=== PATIENT | male | born 1980 | race American Indian/Alaskan Native ===

== ENCOUNTER 2018-07-02 16:09 | Emergency (ER) | payer OTHER ==
[2018-07-02 16:24] VITALS: BP 137/80; PULSE 76; RESP 18; TEMP 98; O2SAT 99
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
--- NOTE | 2018-07-02 17:14 | RAD ---
Date of service: 07/02/2018 PROCEDURE: Cervical Spine Radiographs. HISTORY: Pain. COMPARISON: None available. FINDINGS: BONES: Alignment maintained. No fracture. Dens Intact. DISC SPACES: Normal. SOFT TISSUES: Normal. No prevertebral soft tissue swelling. OTHER FINDINGS: None. IMPRESSION: Normal cervical spine radiographs
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
== END 2018-07-02 18:09 | disposition home or self-care (01) ==
LOC: H.ER 16:09
DX: M54.9 Dorsalgia, unspecified (principal); S16.1XXA Strain of muscle, fascia and tendon at neck level, initial encounter; S60.00XA Contusion of unspecified finger without damage to nail, initial encounter; J45.909 Unspecified asthma, uncomplicated; V43.52XA Car driver injured in collision with other type car in traffic accident, initial encounter

== ENCOUNTER 2018-07-19 02:17 | Emergency (ER) | payer OTHER ==
[2018-07-19 02:31] VITALS: BMI 28.7
[2018-07-19 02:36] VITALS: BP 143/87; TEMP 97.8; O2SAT 100
[2018-07-19] MEDS ORDERED: Albuterol-Ipratrop 3 mg / 0.5 (3 ml) UD INH STA (02:54)
[2018-07-19] MEDS ORDERED: Albuterol-Ipratrop 3 mg / 0.5 (3 ml) UD ONE (03:14)
--- NOTE | 2018-07-19 03:23 | ED PDOC ---
HPI: SOB/CHF/COPD Time Seen by Provider: 07/19/18 02:30 Chief Complaint (Nursing): Respiratory Distress Chief Complaint (Provider): asthma History Per: Patient History/Exam Limitations: no limitations Onset/Duration Of Symptoms: Days Current Symptoms Are (Timing): Still Present Quality: Tightness Associated Symptoms: denies: Fever, Chills Additional Complaint(s): Gianluca Jones is a 38 year old male, with a past medial history of asthma, who presents to the emergency department complaining of an acute sense of chest tightness. Patient used Ventolin inhaler with some relief but reports feeling some persistent tightness. He denies any fever, chills, vomiting and diarrhea. No further medical complaints. PMD: None provided. Past Medical History Reviewed: Historical Data, Nursing Documentation, Vital Signs Vital Signs: Last Vital Signs Temp 97.8 F 07/19/18 02:31 Pulse 61 07/19/18 02:31 Resp 18 07/19/18 02:31 BP 143/87 07/19/18 02:31 Pulse Ox 100 07/19/18 02:31 - Medical History PMH: Asthma - Surgical History Surgical History: No Surg Hx - Family History Family History: States: Unknown Family Hx - Social History Current smoker - smoking cessation education provided: No Alcohol: None Drugs: Denies - Immunization History Hx Tetanus Toxoid Vaccination: Yes (1 YR) - Home Medications Home Medications: Ambulatory Orders Medication Instructions Recorded Cyclobenzaprine [Cyclobenzaprine 10 mg PO TID #20 tab 07/02/18 HCl] Ibuprofen [Motrin] 600 mg PO Q6 #20 tab 07/02/18 predniSONE [predniSONE Tab] 60 mg PO QAM #12 tab 07/19/18 - Allergies Allergies/Adverse Reactions: Allergies Allergy/AdvReac Type Severity Reaction Status Date / Time No Known Allergies Allergy Verified 05/14/14 13:21 Review of Systems ROS Statement: Except As Marked, All Systems Reviewed And Found Negative Constitutional: Negative for: Fever, Chills Cardiovascular: Positive for: Chest Pain (tightness) Respiratory: Positive for: Shortness of Breath Gastrointestinal: Negative for: Vomiting, Diarrhea Physical Exam - Reviewed Nursing Documentation Reviewed: Yes Vital Signs Reviewed: Yes - Physical Exam Appears: Positive for: No Acute Distress Head Exam: Positive for: ATRAUMATIC, NORMAL INSPECTION, NORMOCEPHALIC Skin: Positive for: Normal Color, Warm, Dry Eye Exam: Positive for: Normal appearance, EOMI, PERRL Neck: Positive for: Normal, Painless ROM Cardiovascular/Chest: Positive for: Regular Rate, Rhythm. Negative for: Murmur Respiratory: Positive for: Other (decreased air entry bilaterally). Negative for: Respiratory Distress Gastrointestinal/Abdominal: Positive for: Normal Exam, Soft. Negative for: Tenderness, Guarding, Rebound Back: Positive for: Normal Inspection. Negative for: L CVA Tenderness, R CVA Tenderness, Vertebral Tenderness Extremity: Positive for: Normal ROM (upper and lower extremities). Negative for: Deformity Neurologic/Psych: Positive for: Alert, Oriented - ECG O2 Sat by Pulse Oximetry: 100 (RA) Pulse Ox Interpretation: Normal Medical Decision Making Medical Decision Making: Time: 02:30 Initial Impression: 38 y/o male with mild asthma exacerbation. Duonebs and prednisone ordered. Initial Plan: --Duoneb 6 ml INH --Prednisone 60 mg PO --Reevaluation 03:55 -Patient reports improvement of symptoms and is medically stable for discharge home. Diagnosis of asthma. Return precautions provided. --------- Scribe Attestation: Documented by David Gordon, acting as a scribe for Devante Coon MD. Provider Scribe Attestation: All medical record entries made by the Scribe were at my direction and personally dictated by me. I have reviewed the chart and agree that the record accurately reflects my personal performance of the history, physical exam, medical decision making, and the department course for this patient. I have also personally directed, reviewed, and agree with the discharge instructions and disposition. Disposition - Clinical Impression Clinical Impression: Asthma - Disposition Disposition: Routine/Home Disposition Time: 03:55 Condition: STABLE Prescriptions: predniSONE [predniSONE Tab] 60 mg PO QAM #12 tab Instructions: Asthma in Adults Forms: [employer] (Northern Irish)
[2018-07-19 03:47] VITALS: PULSE 71; RESP 20
== END 2018-07-19 04:04 | disposition home or self-care (01) ==
LOC: H.ER 02:17
DX: J45.909 Unspecified asthma, uncomplicated (principal)